=== PATIENT | male | born 1985 | race Two or more races ===

== ENCOUNTER 2022-06-02 22:44 | Emergency (ER) | payer OTHER ==
[~2022-06-02] VITALS: Ht 180.3 cm; Wt 90.7 kg
[2022-06-02] MEDS ORDERED: ZESTRIL5 MG PO (22:56)
[2022-06-03] MEDS ORDERED: ACETAMINOPHEN500 M1 PO (04:59)
[2022-06-03] MEDS ORDERED: PEPCID AC20 MG PO (04:59)
== END 2022-06-03 | disposition home or self-care (01) ==
LOC: ER 22:44
DX: R13.10 Dysphagia, unspecified (principal); J02.9 Acute pharyngitis, unspecified; Z20.822 Contact with and (suspected) exposure to COVID-19